=== PATIENT | male | born 1970 | race Caucasian/White ===

== ENCOUNTER 2019-06-13 18:49 | Emergency (ER) | payer OTHER ==
[~2019-06-13] VITALS: Ht 177.8 cm; Wt 94.2 kg
[2019-06-13] MEDS ORDERED: HYDROcodone/acetaminophen 5mg/325mg tablet PO ONE (19:10)
[2019-06-13 20:56] VITALS: BP 155/89
== END 2019-06-13 20:50 | disposition home or self-care (01) ==
LOC: ER 18:50
DX: S80.11XA Contusion of right lower leg, initial encounter (principal); W18.39XA Other fall on same level, initial encounter; Y93.89 Activity, other specified; Y92.89 Other specified places as the place of occurrence of the external cause; Y99.8 Other external cause status
CPT/HCPCS: 73590; 99283

== ENCOUNTER 2019-09-01 17:57 | Emergency (ER) | payer OTHER ==
[~2019-09-01] VITALS: Ht 177.8 cm; Wt 102.5 kg
[~2019-09-01 17:57] MED LIST: LIDOcaine 1% W/epiNEPHrine 1:100,000 20ml vial ONE
[2019-09-01] MEDS ORDERED: LIDOcaine 1% w/EPI 1:200,000 injection 10mL vial IM ONE (18:45)
[2019-09-01] MEDS ORDERED: LIDOcaine 1% W/epiNEPHrine 1:200,000 10ml vial IJ ONE (18:45)
[2019-09-01] MEDS ORDERED: TETanus/Pertussis (Acell)/Diphther VAC/PF (Tdap-Adult) 0.5ml syringe IMVAC ONE (18:45)
[2019-09-01] MEDS ORDERED: TRAM50TA2 PO (18:56)
[2019-09-01] MEDS ORDERED: CEPH-572 PO (18:56)
--- NOTE | 2019-09-01 19:08 | NUR ---
DISCUSSED THE FOLLOWING MEDICATIONS FOR DISCHARGE: 1. NORCO FOR RIB PAIN AND PATIENT VERBALIZED HOW TO TAKE IT AND ITS SIDE EFFECTS. 2. ZITHROMAX FOR COPD EXACERBATION WITH WORSENING COUGH; PATIENT VEBRALIZED HOW TO TAKE DIRECTED AND SIDE EFFECTS. 3. MEDROL DOSE PACK FOR PAIN AND COPD EXACERBATION: PATIENT STATED THAT HE HAS TERMINAL CANCER AND [employer] STEROIDS ARE NOT GOOD FOR "TERMINAL CANCER; IM DYING DONT YOU KNOW, DAMN IT" HE RAISED HIS VOICE AND SAT UP IN BED. DISCUSSED THE SHORT TERM USE OF STEROIDS FOR COPD AND PAIN. CALLING [facility] AT [phone] TO SEE IF THEY HAVE ROOM AND IF PATIENT IS ALLOWED. PATIENT IS ON THE "NO SERVICES LIST" AND IS IF PATIENT COMES BACK TO [facility] ON SUNDAY AT 1500, [facility] WILL [facility]EE[facility] HIS STATUS
[2019-09-01 19:45] VITALS: BP 139/74
== END 2019-09-01 19:50 | disposition home or self-care (01) ==
LOC: ER 17:57
DX: S61.412A Laceration without foreign body of left hand, initial encounter (principal); F19.90 Other psychoactive substance use, unspecified, uncomplicated; W26.0XXA Contact with knife, initial encounter; Y93.89 Activity, other specified; Y92.89 Other specified places as the place of occurrence of the external cause; Y99.8 Other external cause status; Y90.9 Presence of alcohol in blood, level not specified
CPT/HCPCS: 12002; 90471; 99283

== ENCOUNTER 2019-12-06 17:44 | Emergency (ER) | payer OTHER ==
[~2019-12-06] VITALS: Ht 180.3 cm; Wt 94.5 kg
[2019-12-06 17:58] VITALS: BP 187/106
[2019-12-06] MEDS ORDERED: LIDOcaine 1% W/epiNEPHrine 1:200,000 10ml vial IJ ONE (18:10)
== END 2019-12-06 18:57 | disposition home or self-care (01) ==
LOC: ER 17:44
DX: S61.211A Laceration without foreign body of left index finger without damage to nail, initial encounter (principal); Z72.89 Other problems related to lifestyle; W26.0XXA Contact with knife, initial encounter; Y93.89 Activity, other specified; Y92.89 Other specified places as the place of occurrence of the external cause; Y99.8 Other external cause status
CPT/HCPCS: 12001; 99282

== ENCOUNTER 2023-03-27 23:43 | Emergency (ER) | payer OTHER ==
[~2023-03-27] VITALS: Ht 177.8 cm; Wt 109.1 kg
[2023-03-27 23:58] VITALS: BP 176/102
[2023-03-28] MEDS ORDERED: normal saline 1000ml 1,000 ML IV ONE (02:25)
[2023-03-28] MEDS ORDERED: morphine 4 MG/ML inj SYRINge IV ONE (02:25)
[2023-03-28] MEDS ORDERED: ketorolac trometh. 30mg/ml inj. IV ONE (02:25)
[2023-03-28] MEDS ORDERED: ondansetron/PF 4mg/2ml inj IV ONE (02:25)
[2023-03-28 03:53] LABS: HEMOGLOBIN 13.3 g/dl (14.0-17.9); MEAN CORPUSCULAR VOLUME 85.4 FL (78-98)
[2023-03-28 03:55] LABS: BASOPHILS % (AUTO) 0.2 % (0-1); EOSINOPHILS # (AUTO) 0.1 X10'3 (0-0.9); EOSINOPHILS % (AUTO) 0.6 % (0-6); HEMATOCRIT 39.6 % (42.0-52.0); LYMPHOCYTES # (AUTO) 0.9 X10'3 (1.1-4.8); LYMPHOCYTES % (AUTO) 7.1 % (21-51); MEAN CORPUSCULAR HEMOGLOBIN 28.8 PG (27.0-31.0); MEAN CORPUSCULAR HGB CONC 33.7 g/dL (33.0-36.5); MEAN PLATELET VOLUME 8.3 FL (7.4-10.4); MONOCYTES # (AUTO) 0.5 X10'3 (0-0.9); MONOCYTES % (AUTO) 4.4 % (2-12); NEUTROPHILS # (AUTO) 10.9 X10'3 (1.8-7.7); NEUTROPHILS % (AUTO) 87.7 % (42-75); PLATELET COUNT 259 X10'3 (140-440); RED BLOOD COUNT 4.63 X10'6 (4.70-6.10); RED CELL DISTRIBUTION WIDTH 13.8 % (11.5-14.5); WHITE BLOOD COUNT 12.4 X10'3 (4.5-11.0)
[2023-03-28 04:04] LABS: ALANINE AMINOTRANSFERASE 70 U/L (12-78); ALBUMIN 3.4 G/DL (3.4-5.0); ALKALINE PHOSPHATASE 89 IU/L (46-116); ANION GAP 9 (8-16); ASPARTATE AMINO TRANSFERASE 38 U/L (10-37); BILIRUBIN,TOTAL 0.4 MG/DL (0.1-1.0); BLOOD UREA NITROGEN 17 MG/DL (7-18); BUN/CREATININE RATIO 15.3 (10.0-20.0); CALCIUM 8.1 MG/DL (8.5-10.1); CHLORIDE 107 MMOL/L (99-107); CREATININE 1.11 MG/DL (0.60-1.10); GLUCOSE 126 MG/DL (70-104); POTASSIUM 3.6 MMOL/L (3.5-5.1); SODIUM 142 MMOL/L (135-145); TOTAL CARBON DIOXIDE 26.4 MMOL/L (24-32); TOTAL PROTEIN 6.9 G/DL (6.4-8.2); eGFR 69 ML/MIN
[2023-03-28] MEDS ORDERED: FLO0.4C PO (04:20)
[2023-03-28] MEDS ORDERED: HYDR-3965 PO (04:20)
--- NOTE | 2023-03-28 04:39 | NUR ---
iv dc'd pt being discharged dressing applied pt education given about kidney stone capture with screen.
== END 2023-03-28 04:41 | disposition home or self-care (01) ==
LOC: ER 23:44
DX: N20.0 Calculus of kidney (principal)
CPT/HCPCS: 74176; 80053; 85025; 96361; 96374; 96375; 99285; J1885; J2270; J2405; J7030

== ENCOUNTER 2024-03-01 07:41 | Emergency (ER) | payer OTHER ==
[~2024-03-01] VITALS: Ht 177.8 cm; Wt 115.4 kg
[~2024-03-01 07:41] MED LIST changes: +FLO0.4C PO; +HYDR-3965 PO; -LIDOcaine 1% W/epiNEPHrine 1:100,000 20ml vial ONE
[2024-03-01 07:43] VITALS: BP 175/111; PULSE 85; RESP 20; TEMP 97.9; O2SAT 96
[2024-03-01] MEDS: LIDOcaine 1% W/epiNEPHrine 1:100,000 20ml vial IJ ONE (09:10)
[2024-03-01] MEDS ORDERED: CEPH-585 PO (10:29)
== END 2024-03-01 11:04 | disposition home or self-care (01) ==
LOC: ER 07:41
DX: S51.812A Laceration without foreign body of left forearm, initial encounter (principal); Z79.899 Other long term (current) drug therapy; W26.8XXA Contact with other sharp object(s), not elsewhere classified, initial encounter; Y93.89 Activity, other specified; Y92.89 Other specified places as the place of occurrence of the external cause; Y99.8 Other external cause status
CPT/HCPCS: 12032; 99284; A6223; A6258; A6449

== ENCOUNTER 2024-03-10 10:40 | Emergency (ER) | payer OTHER ==
[~2024-03-10] VITALS: Ht 177.8 cm; Wt 115.0 kg
[2024-03-10 12:32] VITALS: BP 126/68; PULSE 86; RESP 18; TEMP 98.5; O2SAT 97
== END 2024-03-10 12:37 | disposition home or self-care (01) ==
LOC: ER 10:40
DX: S51.812D Laceration without foreign body of left forearm, subsequent encounter (principal); Z79.1 Long term (current) use of non-steroidal anti-inflammatories (NSAID); Z79.899 Other long term (current) drug therapy; X58.XXXD Exposure to other specified factors, subsequent encounter
CPT/HCPCS: 99281; A6449

== ENCOUNTER 2025-03-26 20:19 | Emergency (ER) | payer OTHER ==
[~2025-03-26] VITALS: Ht 177.8 cm; Wt 113.2 kg
[~2025-03-26 20:19] MED LIST changes: -FLO0.4C PO; +TAMS-55 PO
[2025-03-26 20:49] VITALS: PULSE 77; RESP 16; O2SAT 97
[2025-03-26 22:40] VITALS: TEMP 98.1
== END 2025-03-26 22:41 | disposition left against medical advice (07) ==
LOC: ER 20:20
DX: R51.9 Headache, unspecified (principal); Z53.21 Procedure and treatment not carried out due to patient leaving prior to being seen by health care provider

== ENCOUNTER 2025-03-29 13:06 | Emergency (ER) | payer OTHER ==
[~2025-03-29] VITALS: Ht 177.8 cm; Wt 92.3 kg
[2025-03-29] MEDS ORDERED: dexamethasone sod phosphate 10mg/ml inj PO STA (14:14)
--- NOTE | 2025-03-29 14:24 | Physician Documentation ---
History of Present Illness ~ Chief Complaint: Ear Pain Stated Complaint: HEADACHE/EARACHE Time Seen by MD: 13:36 Primary Medical Doctor: [facility] HPI This is a 55-year-old male who presents with three days of intermittent right sided headache described as sharp and throbbing, patient reports no nausea or light sensitivity. Patient reports sleeping makes the pain better. Patient reports history of similar episodes of headaches that occur approximately once a year, patient additionally reports history of frequent ear infections. Patient reports no other acute symptoms or concerns. Medication Reconciliation Allergies: Coded Allergies: No Known Allergies (Unverified , 03/26/25) Scheduled Ibuprofen (Ibuprofen), 1 TAB PO Q8H Tamsulosin Hcl* (Flomax*), 1 CAP PO DAILY Scheduled PRN Hydrocodone Bit/Acetaminophen 5/325 MG ([place] 5/325 MG), 1-2 TAB PO Q4-6 hours PRN for pain Past Medical History Past Medical History: No Pertinent History, Kidney Stones Past Surgical History: noncontributory Alcohol Use: Sober Drug Use: none Lives with: Family Lives In: Home Review of Systems ROS Right-sided headache as stated above in the HPI, otherwise all systems are reviewed and negative. Physical Exam Vital Signs: Temperature: 98.0, Source: Temporal, Heart Rate: 88, Respiratory Rate: 15, BP: 186/91, Pulse Oximetry: 96, Weight: 92.300 Physical Exam VITALS: Reviewed and as above. GENERAL: Alert, nontoxic appearing, no apparent distress. HEENT: PERRLA, EOMI, bilateral TMs clear and nonbulging with normal exam, bilat eral auditory canals normal exam nonerythematous, scalp nontender to palpation, no postauricular tenderness to palpation or erythema, no mastoid tenderness or erythema, no cervical lymphadenopathy RESPIRATORY: No increased work of breathing, no respiratory distress, speaking in full clear sentences CV: Regular rate and rhythm no murmur BACK: No CVA tenderness Progress Results/Orders Results/Orders Completed Orders - CANDICE [facility] [employer] Normal Saline 1000ml (Sodium Chloride 10 (03/29/25 14:15) Acetaminophen 1,000mg/100ml Iv (Ofirmev (03/29/25 14:15) Prochlorperazine Inj (Compazine Inj) (03/29/25 14:15) Diphenhydramine Inj (Benadryl Inj.) (03/29/25 14:15) Dexamethasone Tablet (Decadron Tablet) (03/29/25 14:21) Dexamethasone 6mg Tablet (Dexamethasone (03/29/25 14:22) Medications Received in ER Medications (Trade) Dose Ordered Sig/[place] Route PRN Reason Start Time Stop Time Status Last Admin Dose Admin (sodium chloride 1000ml IV soln) 1,000 ml ONCE ONCE IVB 03/29/25 14:15 03/29/25 14:19 DC 03/29/25 14:46 1,000 ML Acetaminophen 100 ml @ 400 mls/hr ONCE ONCE IV 03/29/25 14:15 03/29/25 14:29 DC 03/29/25 14:44 400 MLS/HR (Compazine inj) 10 mg ONCE ONCE IM 03/29/25 14:15 03/29/25 14:19 DC 03/29/25 14:43 10 MG (Benadryl inj.) 25 mg ONCE ONCE IV 03/29/25 14:15 03/29/25 14:19 DC 03/29/25 14:43 25 MG (Decadron tablet) 4 mg ONCE STAT PO 03/29/25 14:21 03/29/25 14:22 DC 03/29/25 14:45 4 MG (Dexamethasone 6mg tablet) 6 mg ONCE STAT PO 03/29/25 14:22 03/29/25 14:23 DC 03/29/25 14:45 6 MG Vital Signs 03/29/25 03/29/25 13:08 16:01 Temp 98.0 98.0 Pulse 88 70 Resp 15 17 B/P (MAP) 186/91 132/76 Pulse Ox 96 99 Medical Decision Making Findings This is a 55-year-old male who presented with right-sided headache described as sharp and throbbing, patient's has past history of similar headaches with the same pattern in his headache is not more intense than previous headaches. Patient reported feeling otherwise well and was well-appearing with benign physical exam. Patient reports significant improvement in symptoms and he is ready to go home. It is reassuring headache is not: a first headache or change from normal headache, of sudden onset, described as thunderclap or worst ever, worse with exertion, was not a result of significant trauma and does not have associated fever and/or nuchal rigidity to suggest meningitis or focal motor and/or sensory deficits to suggest CVA, intracranial hemorrhage, or mass. Patient is otherwise well appearing, non-toxic, and well hydrated. Pain controlled in department. Vital signs stable. I discussed with the patient plan to discharge him home with a prescription for ibuprofen for return of headache symptoms and instructed him to follow up with his primary care provider, patient understood and agreed with plan. Patient is appropriate for outpatient follow up. Patient provided home care instructions, follow up instructions, and return to care precautions which he verbalized understanding of. Additional Comment I have considered, but have a low clinical suspicion for: CVA, intracranial hemorrhage, meningitis, mass/tumor, referred dental/TMJ pain, sinus pain/infection, trigeminal neuralgia, herpes zoster, glaucoma, CO poisoning, otitis media, otitis externa, mastoiditis Departure Disposition: HOME / SELF CARE / HOMELESS Impression: Primary Impression: Headache Qualified Codes: R51.9 - Headache, unspecified Condition: Improved Discharge Instructions: General Headache Without Cause Additional Instructions: Please use the high-dose ibuprofen as prescribed she had your headache return. You may add [id number] Tylenol as directed by the [id number] directions as needed pain that does not respond to the ibuprofen. Please follow up with your primary care provider in the next few days as they may be able to prescribe you a medication you are able to take at home for future headaches. Please return to the emergency department for any new or worsening concerning symptoms including but not limited to if your headache returns and does not respond to the prescribed ibuprofen and [id number] Tylenol. Referrals: NO PRIMARY CARE PROVIDER (PCP) Prescriptions Ibuprofen (Ibuprofen) 800 Mg Tablet 1 TAB PO Q8H for pain for 10 Days, #30 TAB 0 Refills Prov: [facility] 03/29/25 Education Educated: Patient Educated regarding: diagnosis, treatment, prognosis, need for follow up Signature Scribe Signature: No scribe Attestation: The note accurately reflects work and decisions made by me.JUDY Knight 03/29/25 21:00 [facility] Mar 29, 2025 14:24
[2025-03-29] MEDS: proCHLORperazine 10 MG/2 ml inj IM ONE (14:43)
[2025-03-29] MEDS: diphenhydrAMINE 50 mg/ml inj IV ONE (14:43)
[2025-03-29] MEDS: acetaminophen 1,000mg/100ml IV 100 ML IV ONE (14:44)
[2025-03-29] MEDS: DEXAMETHASONE 6 MG TABLET PO STA (14:45)
[2025-03-29] MEDS: dexamethasone 4mg tablet PO STA (14:45)
[2025-03-29] MEDS: normal saline 1000ML IV soln IVB ONE (14:46)
[2025-03-29] MEDS ORDERED: IBUP-1986 PO (15:47)
[2025-03-29 16:01] VITALS: BP 132/76; PULSE 70; RESP 17; TEMP 98; O2SAT 99
== END 2025-03-29 16:05 | disposition home or self-care (01) ==
LOC: ER 13:06
DX: R51.9 Headache, unspecified (principal); F10.90 Alcohol use, unspecified, uncomplicated; Z87.440 Personal history of urinary (tract) infections; Y90.9 Presence of alcohol in blood, level not specified
CPT/HCPCS: 96361; 96372; 96374; 96375; 99284; J0131; J0780; J1200; J7030; J8540